=== PATIENT | male | born 1940 | race Asian ===

== ENCOUNTER 2019-02-06 13:06 | Outpatient (CLI) | payer OTHER, BC ==
[~2019-02-06] VITALS: Ht 180.3 cm; Wt 95.3 kg
[2019-02-06 13:10] VITALS: BP 141/71; TEMP 98
== END 2019-02-06 14:45 | disposition home or self-care (01) ==
LOC: INF 13:06
DX: M86.8X7 Other osteomyelitis, ankle and foot (principal)
CPT/HCPCS: 96365; 96375; J0878

== ENCOUNTER 2019-02-07 08:06 | Outpatient (CLI) | payer OTHER, BC ==
[~2019-02-07] VITALS: Ht 180.3 cm; Wt 95.3 kg
[2019-02-07 08:28] VITALS: BP 154/82; TEMP 98.7
== END 2019-02-07 10:15 | disposition home or self-care (01) ==
LOC: INF 08:06
DX: M86.8X7 Other osteomyelitis, ankle and foot (principal)
CPT/HCPCS: 96365; 96375; J0878

== ENCOUNTER 2019-02-08 08:16 | Outpatient (CLI) | payer OTHER, BC | END 2019-02-08 09:15 | disposition home or self-care (01) | LOC: INF 08:16 | DX: M86.8X7 Other osteomyelitis, ankle and foot (principal) | CPT/HCPCS: 96365; 96375; J0878; J1642 ==

== ENCOUNTER 2019-02-09 08:25 | Outpatient (CLI) | payer OTHER, BC ==
[~2019-02-09] VITALS: Ht 30.5 cm; Wt 0.5 kg
== END 2019-02-09 09:36 | disposition home or self-care (01) ==
LOC: INF 08:25
DX: M86.8X7 Other osteomyelitis, ankle and foot (principal)
CPT/HCPCS: 96365; 96375; J0878; J1642

== ENCOUNTER 2019-02-10 08:25 | Outpatient (CLI) | payer OTHER, BC ==
[~2019-02-10] VITALS: Ht 180.3 cm; Wt 95.3 kg
[2019-02-10 08:38] VITALS: BP 149/86; TEMP 98.7
== END 2019-02-10 09:25 | disposition home or self-care (01) ==
LOC: INF 08:25
DX: M86.8X7 Other osteomyelitis, ankle and foot (principal)
CPT/HCPCS: 96365; 96375; J0878

== ENCOUNTER 2019-02-11 08:01 | Outpatient (CLI) | payer OTHER, BC ==
[~2019-02-11] VITALS: Ht 180.3 cm; Wt 95.3 kg
[2019-02-11 08:25] VITALS: BP 136/76; TEMP 97.9
== END 2019-02-11 09:15 | disposition home or self-care (01) ==
LOC: INF 08:01
DX: M86.8X7 Other osteomyelitis, ankle and foot (principal)
CPT/HCPCS: 96365; 96375; J0878

== ENCOUNTER 2019-02-13 07:49 | Outpatient (CLI) | payer OTHER, BC ==
[~2019-02-13] VITALS: Ht 180.3 cm; Wt 95.3 kg
[2019-02-13 08:15] VITALS: BP 141/77; TEMP 98.6
[2019-02-13 09:35] LABS: PLATELET COUNT 307 K/uL (142-355)
== END 2019-02-13 09:20 | disposition home or self-care (01) ==
LOC: INF 07:49
PROVIDERS: Family Medicine
DX: M86.8X7 Other osteomyelitis, ankle and foot (principal)
CPT/HCPCS: 36591; 82550; 85027; 96365; 96375; 99211; J0878

== ENCOUNTER 2019-02-14 08:12 | Outpatient (CLI) | payer OTHER, BC ==
[~2019-02-14] VITALS: Ht 180.3 cm; Wt 95.3 kg
[2019-02-14 08:25] VITALS: BP 143/78; TEMP 97.9
== END 2019-02-14 09:08 | disposition home or self-care (01) ==
LOC: INF 08:12
DX: M86.8X7 Other osteomyelitis, ankle and foot (principal)
CPT/HCPCS: 96365; 96375; J0878

== ENCOUNTER 2019-02-16 08:27 | Outpatient (CLI) | payer OTHER, BC ==
[~2019-02-16] VITALS: Ht 180.3 cm; Wt 95.3 kg
[2019-02-16 09:30] VITALS: BP 149/86; TEMP 98.3
== END 2019-02-16 09:30 | disposition home or self-care (01) ==
LOC: INF 08:27
DX: M86.8X7 Other osteomyelitis, ankle and foot (principal)
CPT/HCPCS: 96365; 96375; J0878; J1642

== ENCOUNTER 2019-02-17 08:07 | Outpatient (CLI) | payer OTHER, BC ==
[~2019-02-17] VITALS: Ht 180.3 cm; Wt 95.3 kg
[2019-02-17 08:20] VITALS: BP 180/83; TEMP 98.6
== END 2019-02-17 09:25 | disposition home or self-care (01) ==
LOC: INF 08:07
DX: M86.8X7 Other osteomyelitis, ankle and foot (principal)
CPT/HCPCS: 96365; 96375; J0878

== ENCOUNTER 2019-02-20 07:48 | Outpatient (CLI) | payer OTHER, BC ==
[~2019-02-20] VITALS: Ht 180.3 cm; Wt 95.3 kg
[2019-02-20 11:35] VITALS: BP 111/60; TEMP 97.7
[2019-02-20 12:58] LABS: PLATELET COUNT 288 K/uL (142-355)
== END 2019-02-20 12:44 | disposition home or self-care (01) ==
LOC: INF 07:48
PROVIDERS: Emergency Medicine
DX: M86.8X7 Other osteomyelitis, ankle and foot (principal)
CPT/HCPCS: 36591; 82550; 85027; 96365; 96375; J0878

== ENCOUNTER 2019-02-22 08:16 | Outpatient (CLI) | payer OTHER, BC ==
[~2019-02-22] VITALS: Ht 177.8 cm; Wt 95.3 kg
== END 2019-02-22 09:05 | disposition home or self-care (01) ==
LOC: INF 08:16
DX: M86.8X7 Other osteomyelitis, ankle and foot (principal)
CPT/HCPCS: 96365; 96375; J0878

== ENCOUNTER 2019-02-23 08:12 | Outpatient (CLI) | payer OTHER, BC ==
[~2019-02-23] VITALS: Ht 177.8 cm; Wt 95.3 kg
== END 2019-02-23 09:35 | disposition home or self-care (01) ==
LOC: INF 08:12
DX: M86.8X7 Other osteomyelitis, ankle and foot (principal)
CPT/HCPCS: 96365; 96375; J0878